=== PATIENT | female | born 1955 | race Caucasian/White ===

== ENCOUNTER 2018-02-13 10:31 | Emergency (ER) | payer OTHER ==
[2018-02-13] MEDS ORDERED: Aspirin 81 MG Tab.Chew PO ONE (10:58)
--- NOTE | 2018-02-13 11:09 | EDM.PDOC ---
ED HPI GENERAL MEDICAL PROBLEM - General Chief Complaint: Chest Pain Stated Complaint: [id number] CHEST DISCOMFORT Time Seen by Provider: 02/13/18 10:50 Source of Information: Reports: Patient History Limitations: Reports: No Limitations - History of Present Illness INITIAL COMMENTS - FREE TEXT/NARRATIVE: This 63 yo female patient reports to the ED due to chest discomfort. The patient reports that she started to have symptoms at about 0200 this morning. The patient reports that she took nitro x3 every 1/2 hour with some symptom resolution after the 3rd dose. The patient reports that after she took the 3rd dose of nitro her pain almost went away. The patient reports that her chest pain was about an 8/10 at it's worse, after the nitro her pain went down to a 2/ 10. The patient reports that her pain is currently a 4/10 and more of a chest discomfort. The patient reports that her pain went to her left shoulder last night, but not today. This morning, the patient reports an increase in her chest heaviness after going up and down stairs. 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 Upper Chest Pain Score (Numeric/FACES): 4 - Related Data Allergies Allergy/AdvReac Type Severity Reaction Status Date / Time doxycycline Allergy Cannot Verified 02/13/18 10:45 Remember propoxyphene Allergy Cannot Verified 02/13/18 10:45 Remember rosuvastatin calcium Allergy Swelling Verified 02/13/18 10:45 [From Crestor] Home Meds: Home Meds Baclofen 10 mg PO ASDIRECTED 02/21/14 [History] Citalopram [Citalopram Hbr] 20 mg PO DAILY 02/21/14 [History] Fluticasone Furoate [Veramyst] 1 spray AILIN DAILY 02/21/14 [History] Pantoprazole Sodium 40 mg PO DAILY 02/21/14 [History] Aspirin [Lo-Dose Aspirin EC] 81 mg PO DAILY 10/02/16 [History] Clopidogrel [Plavix] 75 mg PO DAILY 10/02/16 [History] Fenofibrate Nanocrystallized [Fenofibrate] 145 mg PO DAILY 10/02/16 [History] Ferrous Sulfate [Iron] 325 mg PO DAILY 10/02/16 [History] Glatiramer Acetate [Copaxone] 1 ml SQ ASDIRECTED 10/02/16 [History] Metoprolol Tartrate 100 mg PO BID 10/02/16 [History] Nitroglycerin [IJP: Nitroglycerin] 1 tab SL ASDIRECTED 10/02/16 [History] atorvaSTATin [Lipitor] 40 mg PO BEDTIME 10/02/16 [History] Acetaminophen [Acetaminophen Extra Strength] 1,000 mg PO BID 10/03/16 [History] Cholecalciferol (Vitamin D3) [Vitamin D3] 2,000 units PO BID 10/03/16 [History] Pramipexole [Mirapex] 2 tab PO TID 10/03/16 [History] Vitamin B Complex 1 each PO DAILY 10/03/16 [History] Valsartan/Hydrochlorothiazide [Valsartan-Hctz 80-12.5 mg Tab] 1 tab PO DAILY [History] amLODIPine [Norvasc] 10 mg PO DAILY 10/22/16 [History] Past Medical History HEENT History: 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, Impaired Vision Other HEENT History: wears glasses Cardiovascular History: Reports: High Cholesterol, Hypertension, [place] Respiratory History: Reports: Bronchitis, Recurrent Gastrointestinal History: 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 Genitourinary History: 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 Musculoskeletal History: 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 Neurological History: Reports: MS Psychiatric History: 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 Endocrine/Metabolic History: 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 Hematologic History: 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 Immunologic History: 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 Oncologic (Cancer) History: 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 Dermatologic History: 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 - Infectious Disease History Infectious Disease History: Reports: Chicken Pox, Measles, Mumps - Past Surgical History Head Surgeries/Procedures: 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 Other Musculoskeletal Surgeries/Procedures:: Hip pain Social & Family History - Family History Family Medical History: Noncontributory - Tobacco Use Smoking Status *Q: Former Smoker Years of Tobacco use: 40 Packs/Tins Daily: 1 Used Tobacco, but Quit: Yes Month/Year Tobacco Last Used: Sept Second Hand Smoke Exposure: No - Caffeine Use Caffeine Use: Reports: Coffee, Energy Drinks, Soda - Recreational Drug Use Recreational Drug Use: No ED ROS GENERAL - Review of Systems Review Of Systems: ROS reveals no pertinent complaints other than HPI. ED EXAM, GENERAL - Physical Exam Exam: See Below Exam Limited By: No Limitations General Appearance: Alert, WD/WN, Moderate Distress Eye Exam: Bilateral Eye: EOMI, Normal Inspection, PERRL Ears: Normal External Exam, Normal Canal, Hearing Grossly Normal, Normal TMs Nose: Normal Inspection, Normal Mucosa, No Blood Throat/Mouth: Normal Inspection, Normal Lips, Normal Teeth, Normal Gums, Normal Oropharynx, Normal Voice, No Airway Compromise Head: Atraumatic, Normocephalic Neck: Normal Inspection, Supple, Non-Tender, Full Range of Motion Respiratory/Chest: No Respiratory Distress Cardiovascular: Normal Peripheral Pulses, Regular Rate, Rhythm, No Edema, No Gallop, No JVD, No Rub, Systolic Murmur GI/Abdominal: Normal Bowel Sounds, Soft, Non-Tender, No Organomegaly, No Distention, No Abnormal Bruit, No Mass (Female) Exam: Deferred Rectal (Female) Exam: Deferred Back Exam: Normal Inspection, Full Range of Motion, NT Extremities: Normal Inspection, Normal Range of Motion, Non-Tender, Normal Capillary Refill, No Pedal Edema Neurological: Alert, Oriented, CN II-XII Intact, Normal Cognition, Normal Gait, Normal Reflexes, No Motor/Sensory Deficits Psychiatric: Normal Affect, Normal Mood Skin Exam: Warm, Dry, Intact, Normal Color, No Rash Lymphatic: No Adenopathy Course - Vital Signs Last Recorded V/S: Last Vital Signs Temp 35.9 C 02/13/18 10:39 Pulse 61 02/13/18 11:45 Resp 16 02/13/18 11:45 BP 124/57 L 02/13/18 11:45 Pulse Ox 95 02/13/18 11:45 - Orders/Labs/Meds Orders: Active Orders 24 hr Category Date Time Status EKG Documentation Completion [RC] URGENT Care 02/13/18 10:37 Active Labs: Laboratory Tests 02/13/18 02/13/18 02/13/18 Range/Units 10:48 10:48 10:48 WBC 5.0 (5.0-10.0) 10^3/uL RBC 3.78 L (4.2-5.4) 10^6/uL Hgb 11.1 L (12.0-16.0) g/dL Hct 34.1 L (37.0-47.0) % MCV 90.2 (80-100) fL MCH 29.4 (27.0-34.0) pg MCHC 32.6 L (33.0-35.0) g/dL Plt Count 270 (150-450) 10^3/uL Neut % (Auto) 59.3 (42.2-75.2) % Lymph % (Auto) 28.1 (20.5-50.1) % [place] % (Auto) 9.0 H (2-8) % Eos % (Auto) 2.8 (1.0-3.0) % Baso % (Auto) 0.8 (0.0-1.0) % PT 9.4 (9.0-12.0) SEC INR 0.9 (0.9-1.2) Sodium 138 (135-145) mmol/L Potassium 3.6 (3.6-5.0) mmol/L Chloride 104 (101-111) mmol/L Carbon Dioxide 26.0 (21.0-31.0) mmol/L Anion Gap 11.6 BUN 20 H (7-18) mg/dL Creatinine 0.6 (0.6-1.3) mg/dL Est Cr Clr Drug Dosing 88.68 mL/min Estimated GFR (MDRD) > 60 BUN/Creatinine Ratio 33.33 Glucose 165 H (74-105) mg/dL Calcium 9.4 (8.4-10.2) mg/dl Total Bilirubin 0.6 (0.2-1.0) mg/dL AST 29 (10-42) IU/L ALT 26 (10-60) IU/L Alkaline Phosphatase 29 L (42-121) IU/L Troponin I < 0.02 (0.00-0.02) ng/ml Total Protein 6.9 (6.7-8.2) g/dl Albumin 4.3 (3.2-5.5) g/dl Globulin 2.6 Albumin/Globulin Ratio 1.65 Meds: Medications Discontinued Medications Generic Name Dose Route Start Last Admin Trade Name Freq PRN Reason Stop Dose Admin Aspirin 324 mg 02/13/18 10:58 02/13/18 11:03 Aspirin PO 02/13/18 10:59 324 mg ONETIME ONE Administration Nitroglycerin 0.4 mg 02/13/18 11:37 02/13/18 11:41 Nitrostat SL 02/13/18 11:38 0.4 mg ONETIME ONE Administration - Re-Assessments/Exams Free Text/Narrative Re-Assessment/Exam: 02/13/18 11:36 The patient was advised of the examination, EKG and lab results. The patient reports her current chest discomfort is rated at a 2/10, but continues to be present. 02/13/18 12:01 A call was placed to [facility] in [place] regarding transferring the patient. During the initial call, there were no tele beds available. [facility] called back to report that they may have a bed available and will call back with a yes or no in less than 15 minutes. Departure - Departure Time of Disposition: 12:40 Disposition: DC/Tfer to [facility] Reason for Transfer *Q: Other Condition: Fair Clinical Impression: Unstable angina Forms: Interfacility Transfer EMTALA Care Plan Goals: Discussed the history, examination, EKG, x-ray and treatments with Dr. Montague (Hospitalist with [facility] in [place]). Dr. Montague accepted the patient for continued evaluation and further management. The patient will be transported by [facility]. - My Orders Last 24 Hours: My Active Orders 02/13/18 10:37 EKG Documentation Completion [RC] URGENT - Assessment/Plan Last 24 Hours: My Active Orders 02/13/18 10:37 EKG Documentation Completion [RC] URGENT
[2018-02-13 11:15] LABS: CHLORIDE,CL 104 mmol/L (101-111); SODIUM,NA 138 mmol/L (135-145)
[2018-02-13] MEDS ORDERED: Nitroglycerin 0.4 MG Tab.SL SL ONE (11:37)
--- NOTE | 2018-02-13 11:44 | CR ---
Clinical history: 63-year-old female with chest "heaviness" (emergency Department). Interpretation: Slight left ventricular configuration but no cephalization of vascular flow, signs of pulmonary venous congestion, alveolar edema or dependent pleural fluid accumulation. Calcification a rch of the aorta. No lung mass or hilar lymphadenopathy. No focal lobar pneumonia, atelectasis or collapse. No pneumothorax. CONCLUSION: Slight left ventriculomegaly. No signs of heart failure, lung mass or pneumonia.
[2018-02-13 11:48] VITALS: BP 124/57
--- NOTE | 2018-02-14 08:49 | EKG ---
02/13/2018 - EVELIN ANDREW - TIME: 10:40 a.m. FINDINGS: The EKG shows normal sinus rhythm, heart rate is 62 beats per minute. CONCLUSION: Normal EKG. [facility] /[id number]
--- NOTE | 2018-02-15 11:41 | EKG ---
02/13/2018 - EVELIN ANDREW - TIME: 10:40 a.m. EKG shows heart rate of 62 beats per minute, sinus rhythm with T-wave inversions in the lateral leads. [facility] /[id number]
== END 2018-02-13 13:11 ==
LOC: DL.ED 10:31
DX: I20.0 Unstable angina (principal); I10 Essential (primary) hypertension; I25.2 Old myocardial infarction; Z88.8 Allergy status to other drugs, medicaments and biological substances; Z79.899 Other long term (current) drug therapy; Z79.82 Long term (current) use of aspirin; Z87.891 Personal history of nicotine dependence
CPT/HCPCS: 36415; 71045; 80053; 84484; 85025; 85610; 93005; 99285; A9270

== ENCOUNTER 2019-02-19 11:07 | Emergency (ER) | payer MEDICARE, OTHER ==
[2019-02-19 12:30] LABS: ANION GAP 15.2; CHLORIDE,CL 103 mmol/L (101-111); SODIUM,NA 139 mmol/L (135-145)
[2019-02-19 13:04] VITALS: BP 142/53
--- NOTE | 2019-02-19 13:36 | CR ---
Clinical history: 64-year-old female chest pain. Interpretation: Upright AP portable chest film confirms chronic mild left ventriculomegaly but without new cephalization of flow signs of alveolar edema or dependent pleural fluid accumulation when compared to 13 Feb 2018. quality assurance monitor final leads. No new lung mass, hilar lymphadenopathy or focal lobar pneumonia. No atelectasis/collapse. No pneumothorax.
--- NOTE | 2019-02-19 14:30 | EDM.PDOC ---
ED HPI GENERAL MEDICAL PROBLEM - General Chief Complaint: Chest Pain Stated Complaint: CHEST PAIN Time Seen by Provider: 02/19/19 11:58 Source of Information: Reports: Patient, RN, RN Notes Reviewed History Limitations: Reports: No Limitations - History of Present Illness INITIAL COMMENTS - FREE TEXT/NARRATIVE: Patient presents to ER with complaint of right upper quadrant--radiates to the back--began last night. Present upon waking today. Achey pain 4/10. He has had no fever, chills, chest pain, shortness of breath, nausea, vomiting and diarrhea. She took a nitro today which helped. Onset: Today Duration: Constant Location: Reports: Abdomen Quality: Reports: Ache Severity: Mild Improves with: 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 Worsens with: 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 Associated Symptoms: Reports: No Other Symptoms - Related Data Allergies Allergy/AdvReac Type Severity Reaction Status Date / Time doxycycline Allergy Cannot Verified 02/13/18 10:45 Remember propoxyphene Allergy Cannot Verified 02/13/18 10:45 Remember rosuvastatin calcium Allergy Swelling Verified 02/13/18 10:45 [From Crestor] Home Meds: Home Meds Baclofen 10 mg PO BID 02/21/14 [History] Citalopram [Citalopram Hbr] 20 mg PO DAILY 02/21/14 [History] Fluticasone Furoate [Veramyst] 1 spray AILIN DAILY PRN 02/21/14 [History] Pantoprazole Sodium 40 mg PO DAILY 02/21/14 [History] Aspirin [Lo-Dose Aspirin EC] 81 mg PO DAILY 10/02/16 [History] Clopidogrel [Plavix] 75 mg PO DAILY 10/02/16 [History] Fenofibrate Nanocrystallized [Fenofibrate] 145 mg PO DAILY 10/02/16 [History] Ferrous Sulfate [Iron] 325 mg PO DAILY 10/02/16 [History] Glatiramer Acetate [Copaxone] 1 ml SQ ASDIRECTED 10/02/16 [History] Metoprolol Tartrate 100 mg PO BID 10/02/16 [History] Nitroglycerin [IJP: Nitroglycerin] 1 tab SL ASDIRECTED 10/02/16 [History] atorvaSTATin [Lipitor] 40 mg PO BEDTIME 10/02/16 [History] Acetaminophen [Acetaminophen Extra Strength] 1,000 mg PO BID 10/03/16 [History] Cholecalciferol (Vitamin D3) [Vitamin D3] 2,000 units PO DAILY 10/03/16 [History ] Pramipexole [Mirapex] 0.125 tab PO TID 10/03/16 [History] Vitamin B Complex 1 each PO DAILY 10/03/16 [History] amLODIPine [Norvasc] 10 mg PO DAILY 10/22/16 [History] Baclofen 20 mg PO BEDTIME 02/24/18 [History] Calcium Carbonate/Vitamin D3 [Liquid Calcium 600-Vit D3 Sfgl] 1 cap PO DAILY 01/08 [History] Isosorbide Mononitrate [Imdur] 60 mg PO DAILY 02/24/18 [History] Lactobacillus Rhamnosus GG [Culturelle] 1 cap PO DAILY 02/24/18 [History] Multivitamin [Multivitamins] 1 cap PO DAILY 02/24/18 [History] metFORMIN HCl [Metformin HCl] 1,000 mg PO BIDMEALS 02/24/18 [History] Past Medical History HEENT History: 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, Impaired Vision Other HEENT History: wears glasses Cardiovascular History: Reports: High Cholesterol, Hypertension, [place] Respiratory History: Reports: Bronchitis, Recurrent Gastrointestinal History: 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 Genitourinary History: 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: 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 Musculoskeletal History: 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 Other Musculoskeletal History: multiple sclerosis Neurological History: Reports: MS Psychiatric History: 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 Endocrine/Metabolic History: Reports: Diabetes, Type II Hematologic History: 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 Immunologic History: 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 Oncologic (Cancer) History: 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 Dermatologic History: 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 - Infectious Disease History Infectious Disease History: Reports: Chicken Pox, Measles, Mumps - Past Surgical History Head Surgeries/Procedures: 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 Cardiovascular Surgical History: Reports: Coronary Artery Stent Other Cardiovascular Surgeries/Procedures: 02/14/2018 GI Surgical History: Reports: Appendectomy, Cholecystectomy Musculoskeletal Surgical History: Reports: Carpal Tunnel Other Musculoskeletal Surgeries/Procedures:: Hip pain Social & Family History - Family History Family Medical History: Noncontributory - Tobacco Use Smoking Status *Q: Never Smoker - Caffeine Use Caffeine Use: Reports: Coffee - Recreational Drug Use Recreational Drug Use: No ED ROS GENERAL - Review of Systems Review Of Systems: ROS reveals no pertinent complaints other than HPI. ED EXAM, GI/ABD - Physical Exam Exam: See Below Exam Limited By: No Limitations General Appearance: Alert, WD/WN, No Apparent Distress Eyes: Bilateral: Normal Appearance Ears: Normal External Exam, Normal Canal, Hearing Grossly Normal, Normal TMs Nose: Normal Inspection, Normal Mucosa, No Blood Throat/Mouth: Normal Inspection, Normal Lips, Normal Teeth, Normal Gums, Normal Oropharynx, Normal Voice, No Airway Compromise Head: Atraumatic, Normocephalic Neck: Normal Inspection, Supple, Non-Tender, Full Range of Motion Respiratory/Chest: Other (expiratory groan) Cardiovascular: Normal Peripheral Pulses, Regular Rate, Rhythm, No Edema, No Gallop, No JVD, No Murmur, No Rub GI/Abdominal Exam: Non-Tender (Female) Exam: Deferred Rectal (Female) Exam: Deferred Back Exam: Normal Inspection, Full Range of Motion, NT Extremities: Normal Inspection, Normal Range of Motion, Non-Tender, Normal Capillary Refill, No Pedal Edema Neurological: Alert, Oriented, CN II-XII Intact, Normal Cognition, Normal Gait, Normal Reflexes, No Motor/Sensory Deficits Psychiatric: Normal Affect, Normal Mood Skin Exam: Warm, Dry, Intact, Normal Color, No Rash Lymphatic: No Adenopathy Course - Vital Signs Last Recorded V/S: Last Vital Signs Temp 98.2 F 02/19/19 12:09 Pulse 70 02/19/19 12:09 Resp 16 02/19/19 12:09 BP 142/53 H 02/19/19 12:09 Pulse Ox 99 02/19/19 12:09 - Orders/Labs/Meds Orders: Active Orders 24 hr Category Date Time Status EKG 12 Lead [EKG Documentation Completion] [RC] STAT Care 02/19/19 11:38 Active Labs: Laboratory Tests 02/19/19 02/19/19 02/19/19 Range/Units 12:01 12:01 12:01 WBC 5.5 (5.0-10.0) 10^3/uL RBC 4.27 (4.2-5.4) 10^6/uL Hgb 12.0 (12.0-16.0) g/dL Hct 37.9 (37.0-47.0) % MCV 88.8 (80-100) fL MCH 28.1 (27.0-34.0) pg MCHC 31.7 L (33.0-35.0) g/dL Plt Count 284 (150-450) 10^3/uL Neut % (Auto) 53.9 (42.2-75.2) % Lymph % (Auto) 32.5 (20.5-50.1) % Grand % (Auto) 9.6 H (2-8) % Eos % (Auto) 3.1 H (1.0-3.0) % Baso % (Auto) 0.9 (0.0-1.0) % Sodium 139 (135-145) mmol/L Potassium 3.2 L (3.6-5.0) mmol/L Chloride 103 (101-111) mmol/L Carbon Dioxide 24.0 (21.0-31.0) mmol/L Anion Gap 15.2 BUN 19 H (7-18) mg/dL Creatinine 0.7 (0.6-1.3) mg/dL Est Cr Clr Drug Dosing TNP Estimated GFR (MDRD) > 60 BUN/Creatinine Ratio 27.14 Glucose 136 H (74-105) mg/dL Calcium 9.4 (8.4-10.2) mg/dl Total Bilirubin 0.6 (0.2-1.0) mg/dL AST 22 (10-42) IU/L ALT 16 (10-60) IU/L Alkaline Phosphatase 27 L (42-121) IU/L Troponin I < 0.02 (0.00-0.02) ng/ml Total Protein 6.6 L (6.7-8.2) g/dl Albumin 4.1 (3.2-5.5) g/dl Globulin 2.5 Albumin/Globulin Ratio 1.64 Amylase 45 (28-100) U/L Lipase 45 (22-51) U/L Urine Color (YELLOW) Urine Appearance (CLEAR) Urine pH (5.0-9.0) Ur Specific [place] (1.005-1.030) Urine Protein (NEGATIVE) Urine Glucose (UA) (NEGATIVE) Urine Ketones (NEGATIVE) Urine Occult Blood (NEGATIVE) Urine Nitrite (NEGATIVE) Urine Bilirubin (NEGATIVE) Urine Urobilinogen (0.2-1.0) mg/dL Ur Leukocyte Esterase (NEGATIVE) Urine RBC /HPF Urine WBC (0-5/HPF) /HPF Ur Epithelial Cells (NOT SEEN) /HPF Amorphous Sediment (NOT SEEN) /HPF Urine Bacteria (0-FEW/HPF) /HPF 02/19/19 Range/Units 13:30 WBC (5.0-10.0) 10^3/uL RBC (4.2-5.4) 10^6/uL Hgb (12.0-16.0) g/dL Hct (37.0-47.0) % MCV (80-100) fL MCH (27.0-34.0) pg MCHC (33.0-35.0) g/dL Plt Count (150-450) 10^3/uL Neut % (Auto) (42.2-75.2) % Lymph % (Auto) (20.5-50.1) % Grand % (Auto) (2-8) % Eos % (Auto) (1.0-3.0) % Baso % (Auto) (0.0-1.0) % Sodium (135-145) mmol/L Potassium (3.6-5.0) mmol/L Chloride (101-111) mmol/L Carbon Dioxide (21.0-31.0) mmol/L Anion Gap BUN (7-18) mg/dL Creatinine (0.6-1.3) mg/dL Est Cr Clr Drug Dosing Estimated GFR (MDRD) BUN/Creatinine Ratio Glucose (74-105) mg/dL Calcium (8.4-10.2) mg/dl Total Bilirubin (0.2-1.0) mg/dL AST (10-42) IU/L ALT (10-60) IU/L Alkaline Phosphatase (42-121) IU/L Troponin I (0.00-0.02) ng/ml Total Protein (6.7-8.2) g/dl Albumin (3.2-5.5) g/dl Globulin Albumin/Globulin Ratio Amylase (28-100) U/L Lipase (22-51) U/L Urine Color Yellow (YELLOW) Urine Appearance Slightly cloudy (CLEAR) Urine pH 6.5 (5.0-9.0) Ur Specific [place] 1.025 (1.005-1.030) Urine Protein 100 H (NEGATIVE) Urine Glucose (UA) Negative (NEGATIVE) Urine Ketones Negative (NEGATIVE) Urine Occult Blood Negative (NEGATIVE) Urine Nitrite Negative (NEGATIVE) Urine Bilirubin Negative (NEGATIVE) Urine Urobilinogen 0.2 (0.2-1.0) mg/dL Ur Leukocyte Esterase Negative (NEGATIVE) Urine RBC 0-5 /HPF Urine WBC 0-5 (0-5/HPF) /HPF Ur Epithelial Cells Few (NOT SEEN) /HPF Amorphous Sediment Many H (NOT SEEN) /HPF Urine Bacteria Few (0-FEW/HPF) /HPF - Radiology Interpretation Free Text/Narrative:: Chest xray: Chronic mild left ventriculomegaly but without new cephalization of flow signs of alveolar edema, or dependent pleural fluid accumulation when compared to 13 Feb 2018. No other acute findings See rad report Departure - Departure Time of Disposition: 14:25 Disposition: Home, Self-Care 01 Condition: Fair Clinical Impression: Abdominal pain Qualifiers: Abdominal location: right upper quadrant Qualified Code(s): R10.11 - Right upper quadrant pain - Discharge Information *PRESCRIPTION DRUG MONITORING PROGRAM REVIEWED*: No *COPY OF PRESCRIPTION DRUG MONITORING REPORT IN PATIENT [place]: No Instructions: Abdominal Pain, Adult, [id number], Flank Pain, Adult, Easy-to- Read Referrals: Ivon Patel PA [Primary Care Provider] - Forms: ED Department Discharge Additional Instructions: Follow up with your primary care facility if no improvement May use Tylenol as directed for pain - My Orders Last 24 Hours: My Active Orders 02/19/19 11:38 EKG 12 Lead [EKG Documentation Completion] [RC] STAT - Assessment/Plan Last 24 Hours: My Active Orders 02/19/19 11:38 EKG 12 Lead [EKG Documentation Completion] [RC] STAT
== END 2019-02-19 14:40 | disposition home or self-care (01) ==
LOC: DL.ED 11:07
DX: R10.11 Right upper quadrant pain (principal); E78.00 Pure hypercholesterolemia, unspecified; I10 Essential (primary) hypertension; E11.9 Type 2 diabetes mellitus without complications; Z88.1 Allergy status to other antibiotic agents; Z88.8 Allergy status to other drugs, medicaments and biological substances; Z79.899 Other long term (current) drug therapy
CPT/HCPCS: 36415; 71045; 80053; 81001; 82150; 83690; 84484; 85025; 93005; 99285-25

== ENCOUNTER 2021-10-15 10:12 | Emergency (ER) | payer MEDICARE, OTHER ==
[2021-10-15] MEDS ORDERED: Aspirin 81 MG Tab.Chew PO ONE (10:29)
[2021-10-15 10:46] VITALS: BP 167/54; PULSE 70
[2021-10-15 11:09] LABS: ANION GAP 12.5 mEq/L (7-13); CHLORIDE,CL 104 mmol/L (98-107); SODIUM,NA 141 mmol/L (136-145)
[2021-10-15 11:16] LABS: CORONAVIRUS COVID-19 NAA NEGATIVE (NEGATIVE)
== END 2021-10-15 13:43 | disposition home or self-care (01) ==
LOC: DL.ED 10:12
DX: R07.9 Chest pain, unspecified (principal); R79.0 Abnormal level of blood mineral; E78.00 Pure hypercholesterolemia, unspecified; I10 Essential (primary) hypertension; I25.2 Old myocardial infarction; E11.9 Type 2 diabetes mellitus without complications; Z88.1 Allergy status to other antibiotic agents; Z88.8 Allergy status to other drugs, medicaments and biological substances; Z79.82 Long term (current) use of aspirin; Z79.02 Long term (current) use of antithrombotics/antiplatelets; Z79.84 Long term (current) use of oral hypoglycemic drugs; Z20.822 Contact with and (suspected) exposure to COVID-19
CPT/HCPCS: 0240U; 36415; 71045; 80053; 82150; 83605; 83690; 83880; 84484; 85025; 85610; 85730; 86140; 93005; 99285; A9270

== ENCOUNTER 2022-06-28 09:02 | Emergency (ER) | payer MEDICARE, OTHER ==
[2022-06-28] MEDS ORDERED: Nitroglycerin 0.4 MG Tab.SL SL ONE (09:30)
[2022-06-28] MEDS ORDERED: Aspirin 81 MG Tab.Chew PO ONE (09:30)
[2022-07-23 15:13] LABS: SODIUM,NA 137 mmol/L (136-145)
[2022-07-23 15:14] LABS: ANION GAP 13.2 mEq/L (7-13); CHLORIDE,CL 101 mmol/L (98-107); ESTIMATED GFR 73 mL/min (>=60)
[2022-07-23 15:15] LABS: PTT,PARTIAL THROMBOPLSTIN TIME 21.4 SEC (22.0-34.0)
== END 2022-06-28 11:25 | disposition home or self-care (01) ==
LOC: DL.ED 09:02
DX: I20.9 Angina pectoris, unspecified (principal); I25.2 Old myocardial infarction; J44.9 Chronic obstructive pulmonary disease, unspecified; Z95.5 Presence of coronary angioplasty implant and graft
CPT/HCPCS: 36415; 71045; 80053; 82150; 83690; 83880; 84484; 85025; 85379; 85610; 85730; 99285; A9270; 93005; 93010; 99284

== ENCOUNTER 2022-09-06 11:47 | Emergency (ER) | payer MEDICARE, OTHER ==
[2022-09-06 12:17] VITALS: BP 127/58; PULSE 84
[2022-09-06 13:41] LABS: CORONAVIRUS COVID-19 NAA NEGATIVE (NEGATIVE)
== END 2022-09-06 14:00 | disposition home or self-care (01) ==
LOC: DL.ED 11:47
DX: R07.9 Chest pain, unspecified (principal); K59.00 Constipation, unspecified; I10 Essential (primary) hypertension; E11.9 Type 2 diabetes mellitus without complications; F17.210 Nicotine dependence, cigarettes, uncomplicated; Z88.1 Allergy status to other antibiotic agents; Z88.8 Allergy status to other drugs, medicaments and biological substances; Z79.899 Other long term (current) drug therapy; Z79.82 Long term (current) use of aspirin; Z90.49 Acquired absence of other specified parts of digestive tract; Z20.822 Contact with and (suspected) exposure to COVID-19
CPT/HCPCS: 0240U; 36415; 71045; 74019; 80053; 83605; 84484; 85025; 85379; 85610; 93005; 99285

== ENCOUNTER 2022-10-08 13:33 | Emergency (ER) | payer MEDICARE, OTHER ==
[2022-10-08] MEDS ORDERED: Sodium Chloride 0.9% 10 ML Syringe FLUSH PRN (14:01)
[2022-10-08 14:50] VITALS: BP 122/69; PULSE 100
[2022-10-08 14:57] LABS: ANION GAP 12.8 mEq/L (7-13)
[2022-10-08 15:04] LABS: CHLORIDE,CL 92 mmol/L (98-107); SODIUM,NA 126 mmol/L (136-145)
[2022-10-08 15:05] LABS: ESTIMATED GFR 76 mL/min (>=60)
[2022-10-08] MEDS ORDERED: Sodium Chloride 0.9% 1,000 ML IV ONE (15:16)
[2022-10-08 15:40] LABS: CORONAVIRUS COVID-19 NAA NEGATIVE (NEGATIVE); RESPIRATORY SYNCYTIAL VIR NAA NEGATIVE (NEGATIVE)
[2022-10-08] MEDS ORDERED: Ondansetron 4 MG/2 ML SDV IVPUSH ONE (15:44)
== END 2022-10-08 16:38 | disposition home or self-care (01) ==
LOC: DL.ED 13:33
DX: B34.9 Viral infection, unspecified (principal); R11.2 Nausea with vomiting, unspecified; E87.1 Hypo-osmolality and hyponatremia; E78.00 Pure hypercholesterolemia, unspecified; I10 Essential (primary) hypertension; I25.2 Old myocardial infarction; J44.9 Chronic obstructive pulmonary disease, unspecified; Z88.0 Allergy status to penicillin; Z88.1 Allergy status to other antibiotic agents; Z88.8 Allergy status to other drugs, medicaments and biological substances; Z79.82 Long term (current) use of aspirin; Z79.02 Long term (current) use of antithrombotics/antiplatelets; Z20.822 Contact with and (suspected) exposure to COVID-19
CPT/HCPCS: 0241U; 36415; 80053; 82150; 83605; 83690; 83735; 85025; 86140; 93005; 96361; 96374; 99284; J2405; J3490; J7030

== ENCOUNTER 2022-11-18 12:48 | Emergency (ER) | payer MEDICARE, OTHER ==
[2022-11-18] MEDS ORDERED: Benzonatate 100 MG Cap PO ONE (12:49)
[2022-11-18] MEDS ORDERED: Albuterol/Ipratropium 3.0-0.5 MG/3 ML Neb Soln NEB ONE (12:59)
[2022-11-18 13:00] VITALS: BP 108/64
[2022-11-18 13:34] VITALS: PULSE 100
[2022-11-18 13:40] LABS: ANION GAP 15.1 mEq/L (7-13)
[2022-11-18] MEDS ORDERED: Magnesium Sulfate/Water 2 GM in Premix Bag 1 BAG IV ONE (13:52)
[2022-11-18] MEDS ORDERED: Sodium Chloride 0.9% 250 ML IV ONE (13:57)
[2022-11-18] MEDS ORDERED: Iopamidol 755 Mg/ML 100 ML Bottle IVPUSH ONE (15:00)
[2022-11-18] MEDS ORDERED: cefTRIAXone 1 GM Vial IVPUSH ONE (15:23)
[2022-11-18] MEDS ORDERED: Benzonatate 100 MG Cap ONE (15:38)
== END 2022-11-18 15:47 | disposition home or self-care (01) ==
LOC: DL.ED 12:48
DX: J18.9 Pneumonia, unspecified organism (principal); E83.42 Hypomagnesemia; E87.1 Hypo-osmolality and hyponatremia; R79.1 Abnormal coagulation profile; E78.00 Pure hypercholesterolemia, unspecified; I10 Essential (primary) hypertension; I25.2 Old myocardial infarction; J44.9 Chronic obstructive pulmonary disease, unspecified; E11.9 Type 2 diabetes mellitus without complications; Z88.0 Allergy status to penicillin; Z88.1 Allergy status to other antibiotic agents; Z88.8 Allergy status to other drugs, medicaments and biological substances; Z79.82 Long term (current) use of aspirin; Z79.02 Long term (current) use of antithrombotics/antiplatelets; Z79.899 Other long term (current) drug therapy; Z79.84 Long term (current) use of oral hypoglycemic drugs
CPT/HCPCS: 36415; 71045; 71275; 80053; 83735; 85025; 85379; 94640; 96365; 96375; 99285; A9270; J0696; J3475; J7030; Q9967; J7620-GY

== ENCOUNTER 2023-09-20 16:30 | Emergency (ER) | payer MEDICARE, OTHER ==
[2023-09-20 15:27] LABS: EOSINOPHILS PERCENT AUTO 2.3 % (1.0-3.0); HEMATOCRIT 31.6 % (37.0-47.0); HEMOGLOBIN 9.7 g/dL (12.0-16.0); LYMPHOCYTES PERCENT AUTO 22.4 % (20.5-50.1); MEAN CORPUSCULAR HEMOGLOBIN 29.7 pg (27.0-34.0); MEAN CORPUSCULAR HGB CONC 30.7 g/dL (33.0-35.0); MEAN CORPUSCULAR VOLUME 96.6 fL (80-100); MONOCYTES PERCENT AUTO 8.2 % (2-8); NEUTROPHILS PERCENT AUTO 66.1 % (42.2-75.2); PLATELET COUNT,PLT 182 10^3/uL (150-450); RED BLOOD CELL COUNT 3.27 10^6/uL (4.2-5.4); WHITE BLOOD CELL COUNT,WBC 5.1 10^3/uL (5.0-10.0)
[2023-09-20] MEDS: Norepinephrine Bit/D5W Premix 250 ML ONE ×2 (15:37→18:04)
[2023-09-20 15:46] LABS: ALANINE AMINOTRANSFERASE,ALT 18 U/L (14-59); ALBUMIN 2.2 g/dL (3.4-5.0); ALKALINE PHOSPHATASE 33 U/L (46-116); ANION GAP 14.8 mEq/L (7-13); ASPARTATE AMNIOTRANSFERASE,AST 12 U/L (15-37); BILIRUBIN TOTAL 0.2 mg/dL (0.2-1.0); BLOOD UREA NITROGEN,BUN 23 mg/dL (7-18); BUN/CREATININE RATIO 31.9 (No establ ref range); CALCIUM 8.1 mg/dL (8.5-10.1); CARBON DIOXIDE,CO2 26 mmol/L (21-32); CHLORIDE,CL 106 mmol/L (98-107); CREATININE 0.72 mg/dL (0.55-1.02); GLUCOSE RANDOM 126 mg/dL (70-99); MAGNESIUM 1.3 mg/dL (1.8-2.4); POTASSIUM,K 3.8 mmol/L (3.5-5.1); PROTEIN TOTAL,TP 4.5 g/dL (6.4-8.2); SODIUM,NA 143 mmol/L (136-145)
[2023-09-20 15:51] LABS: A/G RATIO 0.96; ESTIMATED GFR 90 mL/min (>=60)
[2023-09-20 15:54] LABS: PROTHROMBIN TIME 10.1 SEC (9.0-12.0)
[~2023-09-20 16:30] MED LIST: Iopamidol 755 Mg/ML 100 ML Bottle IVPUSH ONE; Norepinephrine Bit/D5W Premix 250 ML IV SCH; Sodium Chloride 0.9% 10 ML Syringe FLUSH PRN
[2023-09-20] MEDS ORDERED: Atropine 0.4 MG/ML SDV IVPUSH ONE (18:07)
== END 2023-09-20 17:33 ==
LOC: DL.ED 16:30
DX: I21.3 ST elevation (STEMI) myocardial infarction of unspecified site (principal); I10 Essential (primary) hypertension; J44.9 Chronic obstructive pulmonary disease, unspecified; E78.00 Pure hypercholesterolemia, unspecified; E11.9 Type 2 diabetes mellitus without complications; Z90.49 Acquired absence of other specified parts of digestive tract; Z79.82 Long term (current) use of aspirin; Z79.899 Other long term (current) drug therapy; Z88.0 Allergy status to penicillin; Z88.8 Allergy status to other drugs, medicaments and biological substances
CPT/HCPCS: 36415; 71250; 71275; 80053; 83735; 84484; 85025; 85610; 86850; 86900; 86901; 93010; 99285; J3490; Q9967

== ENCOUNTER 2023-11-01 15:43 | Emergency (ER) | payer MEDICARE, OTHER ==
[2023-11-01 17:28] VITALS: BP 179/76; PULSE 91
== END 2023-11-01 18:51 | disposition home or self-care (01) ==
LOC: DL.ED 15:43
DX: I77.1 Stricture of artery (principal); H53.8 Other visual disturbances; I10 Essential (primary) hypertension; I25.10 Atherosclerotic heart disease of native coronary artery without angina pectoris; E78.00 Pure hypercholesterolemia, unspecified; I25.2 Old myocardial infarction; J44.9 Chronic obstructive pulmonary disease, unspecified; E11.9 Type 2 diabetes mellitus without complications; Z95.1 Presence of aortocoronary bypass graft; Z95.5 Presence of coronary angioplasty implant and graft; Z79.82 Long term (current) use of aspirin; Z79.899 Other long term (current) drug therapy; Z88.8 Allergy status to other drugs, medicaments and biological substances; Z88.0 Allergy status to penicillin; Z88.1 Allergy status to other antibiotic agents
CPT/HCPCS: 93010; 99283; 99284

== ENCOUNTER 2023-11-08 13:01 | Emergency (ER) | payer MEDICARE, OTHER ==
[2023-11-08 13:49] LABS: BASOPHILS PERCENT AUTO 0.9 % (0.0-1.0); EOSINOPHILS PERCENT AUTO 2.3 % (1.0-3.0); HEMATOCRIT 36.9 % (37.0-47.0); HEMOGLOBIN 11.8 g/dL (12.0-16.0); LYMPHOCYTES PERCENT AUTO 24.7 % (20.5-50.1); MEAN CORPUSCULAR HEMOGLOBIN 29.9 pg (27.0-34.0); MEAN CORPUSCULAR VOLUME 93.7 fL (80-100); MONOCYTES PERCENT AUTO 9.8 % (2-8); NEUTROPHILS PERCENT AUTO 62.3 % (42.2-75.2); PLATELET COUNT,PLT 274 10^3/uL (150-450); RED BLOOD CELL COUNT 3.94 10^6/uL (4.2-5.4); WHITE BLOOD CELL COUNT,WBC 5.7 10^3/uL (5.0-10.0)
[2023-11-08 14:00] LABS: ALBUMIN 3.2 g/dL (3.4-5.0); BILIRUBIN TOTAL 0.3 mg/dL (0.2-1.0); BUN/CREATININE RATIO 27.4 (No establ ref range); CALCIUM 9.5 mg/dL (8.5-10.1); CREATININE 0.95 mg/dL (0.55-1.02); EST CRCL DRUG DOSING (CG) 54.35 mL/min; PROTEIN TOTAL,TP 6.6 g/dL (6.4-8.2)
[2023-11-08 14:01] LABS: A/G RATIO 0.94
[2023-11-08] MEDS: Sodium Chloride 0.9% 10 ML Syringe FLUSH PRN (14:01)
[2023-11-08] MEDS: Aspirin 81 MG Tab.Chew PO ONE (14:01)
[2023-11-08] MEDS: Iopamidol 755 Mg/ML 100 ML Bottle IVPUSH ONE (15:54)
[2023-11-08 17:14] VITALS: BP 156/51; PULSE 58
== END 2023-11-08 18:01 | disposition home or self-care (01) ==
LOC: DL.ED 13:01
DX: R07.9 Chest pain, unspecified (principal); I12.9 Hypertensive chronic kidney disease with stage 1 through stage 4 chronic kidney disease, or unspecified chronic kidney disease; N18.9 Chronic kidney disease, unspecified; E78.00 Pure hypercholesterolemia, unspecified; I25.2 Old myocardial infarction; I25.810 Atherosclerosis of coronary artery bypass graft(s) without angina pectoris; J44.9 Chronic obstructive pulmonary disease, unspecified; E11.9 Type 2 diabetes mellitus without complications; F17.210 Nicotine dependence, cigarettes, uncomplicated; Z95.5 Presence of coronary angioplasty implant and graft; Z79.82 Long term (current) use of aspirin; Z79.899 Other long term (current) drug therapy; Z88.8 Allergy status to other drugs, medicaments and biological substances; Z88.0 Allergy status to penicillin
CPT/HCPCS: 36415; 71045; 71275; 74174; 80053; 84484; 85025; 85379; 93005; 99285; A9270; Q9967; J3490

== ENCOUNTER 2024-11-15 17:15 | Emergency (ER) | payer MEDICARE, OTHER ==
[2024-11-15] MEDS ORDERED: Sodium Chloride 0.9% 1,000 ML IV SCH (17:45)
[2024-11-15] MEDS: Iopamidol 612 MG/ML 100 ML Bottle IVPUSH ONE (17:46)
[2024-11-15 17:58] LABS: EOSINOPHILS PERCENT AUTO 2.4 % (1.0-3.0); HEMATOCRIT 38.7 % (37.0-47.0); HEMOGLOBIN 12.2 g/dL (12.0-16.0); LYMPHOCYTES PERCENT AUTO 31.4 % (20.5-50.1); MEAN CORPUSCULAR HEMOGLOBIN 29.8 pg (27.0-34.0); MEAN CORPUSCULAR HGB CONC 31.5 g/dL (33.0-35.0); MEAN CORPUSCULAR VOLUME 94.6 fL (80-100); MONOCYTES PERCENT AUTO 10.1 % (2-8); NEUTROPHILS PERCENT AUTO 55.1 % (42.2-75.2); PLATELET COUNT,PLT 242 10^3/uL (150-450); RED BLOOD CELL COUNT 4.09 10^6/uL (4.2-5.4); WHITE BLOOD CELL COUNT,WBC 4.9 10^3/uL (5.0-10.0)
[2024-11-15] MEDS: Iopamidol 755 Mg/ML 100 ML Bottle IVPUSH ONE (18:08)
[2024-11-15 18:18] LABS: A/G RATIO 1.2; ALANINE AMINOTRANSFERASE,ALT 19 U/L (14-59); ALBUMIN 3.6 g/dL (3.4-5.0); ALKALINE PHOSPHATASE 45 U/L (46-116); ASPARTATE AMNIOTRANSFERASE,AST 14 U/L (15-37); BILIRUBIN DIRECT 0.2 mg/dL (0.0-0.2); BILIRUBIN INDIRECT 0.2; BILIRUBIN TOTAL 0.4 mg/dL (0.2-1.0); BLOOD UREA NITROGEN,BUN 25 mg/dL (7-18); CALCIUM 9.6 mg/dL (8.5-10.1); CARBON DIOXIDE,CO2 29 mmol/L (21-32); CHLORIDE,CL 109 mmol/L (98-107); CREATININE 0.82 mg/dL (0.55-1.02); ESTIMATED GFR 77 mL/min (>=60); GLUCOSE RANDOM 167 mg/dL (70-99); PROTEIN TOTAL,TP 6.6 g/dL (6.4-8.2); SODIUM,NA 145 mmol/L (136-145)
[2024-11-15] MEDS: Lactated Ringers 1,000 ML IV SCH (19:23)
[2024-11-15] MEDS: Cephalexin 500 MG Cap PO ONE (19:47)
[2024-11-15 20:48] VITALS: BP 151/65; PULSE 72
== END 2024-11-15 20:46 | disposition home or self-care (01) ==
LOC: DL.ED 17:15
DX: S30.1XXA Contusion of abdominal wall, initial encounter (principal); I25.10 Atherosclerotic heart disease of native coronary artery without angina pectoris; E78.00 Pure hypercholesterolemia, unspecified; I25.2 Old myocardial infarction; J44.9 Chronic obstructive pulmonary disease, unspecified; I12.9 Hypertensive chronic kidney disease with stage 1 through stage 4 chronic kidney disease, or unspecified chronic kidney disease; N18.9 Chronic kidney disease, unspecified; E11.22 Type 2 diabetes mellitus with diabetic chronic kidney disease; Z88.8 Allergy status to other drugs, medicaments and biological substances; Z88.5 Allergy status to narcotic agent; Z88.0 Allergy status to penicillin; Z79.51 Long term (current) use of inhaled steroids; Z79.899 Other long term (current) drug therapy; Z79.02 Long term (current) use of antithrombotics/antiplatelets; Z95.5 Presence of coronary angioplasty implant and graft; X58.XXXA Exposure to other specified factors, initial encounter
CPT/HCPCS: 36415; 74174; 80048; 80076; 85025; 85610; 99284; A9270; J7120; Q9967

== ENCOUNTER 2025-02-16 09:31 | Emergency (ER) | payer MEDICARE, OTHER ==
[2025-02-16] MEDS: Acetaminophen 500 MG Tab PO ONE (09:53)
[2025-02-16 10:03] VITALS: BP 138/48; PULSE 76
== END 2025-02-16 11:16 | disposition home or self-care (01) ==
LOC: DL.ED 09:31
DX: M16.0 Bilateral primary osteoarthritis of hip (principal); I25.10 Atherosclerotic heart disease of native coronary artery without angina pectoris; E78.00 Pure hypercholesterolemia, unspecified; I12.9 Hypertensive chronic kidney disease with stage 1 through stage 4 chronic kidney disease, or unspecified chronic kidney disease; N18.9 Chronic kidney disease, unspecified; E11.9 Type 2 diabetes mellitus without complications; Z90.49 Acquired absence of other specified parts of digestive tract; Z79.82 Long term (current) use of aspirin; Z79.899 Other long term (current) drug therapy; Z88.8 Allergy status to other drugs, medicaments and biological substances; Z88.1 Allergy status to other antibiotic agents; Z88.0 Allergy status to penicillin; W19.XXXA Unspecified fall, initial encounter
CPT/HCPCS: 73502; 73560; 73590; 99283; A9270

== ENCOUNTER 2025-02-24 16:44 | Emergency (ER) | payer MEDICARE, OTHER ==
[2025-02-24 17:15] LABS: BASOPHILS PERCENT AUTO 0.8 % (0.0-1.0); EOSINOPHILS PERCENT AUTO 3.3 % (1.0-3.0); HEMATOCRIT 37.1 % (37.0-47.0); HEMOGLOBIN 12.2 g/dL (12.0-16.0); LYMPHOCYTES PERCENT AUTO 40.9 % (20.5-50.1); MEAN CORPUSCULAR HEMOGLOBIN 31.4 pg (27.0-34.0); MEAN CORPUSCULAR HGB CONC 32.9 g/dL (33.0-35.0); MEAN CORPUSCULAR VOLUME 95.6 fL (80-100); MONOCYTES PERCENT AUTO 11.6 % (2-8); NEUTROPHILS PERCENT AUTO 43.4 % (42.2-75.2); PLATELET COUNT,PLT 222 10^3/uL (150-450); RED BLOOD CELL COUNT 3.88 10^6/uL (4.2-5.4)
[2025-02-24] MEDS: Aspirin 81 MG Tab.Chew ONE (17:25)
[2025-02-24] MEDS: fentaNYL 100 MCG/2 ML SDV IVPUSH ONE (17:25)
[2025-02-24 17:30] LABS: INR 0.9 (0.9-1.2); PROTHROMBIN TIME 9.9 SEC (9.0-12.0); PTT,PARTIAL THROMBOPLSTIN TIME 24.1 SEC (22.0-34.0)
[2025-02-24 17:33] LABS: A/G RATIO 1.1; ALBUMIN 3.5 g/dL (3.4-5.0); BILIRUBIN TOTAL 0.4 mg/dL (0.2-1.0); BUN/CREATININE RATIO 17.2 (No establ ref range); CALCIUM 9.3 mg/dL (8.5-10.1); CREATININE 0.87 mg/dL (0.55-1.02); EST CRCL DRUG DOSING (CG) 51.22 mL/min; MAGNESIUM 1.8 mg/dL (1.8-2.4); PROTEIN TOTAL,TP 6.6 g/dL (6.4-8.2)
[2025-02-24 17:43] LABS: LACTIC ACID 1.1 mmol/L (0.4-2.0)
[2025-02-24] MEDS: Aspirin 81 MG Tab.Chew PO ONE (17:48)
[2025-02-24] MEDS: fentaNYL 100 MCG/2 ML SDV ONE (17:49)
[2025-02-24 17:53] VITALS: PULSE 73
[2025-02-24 18:36] VITALS: BP 114/67
== END 2025-02-24 18:53 ==
LOC: DL.ED 16:44
DX: I25.110 Atherosclerotic heart disease of native coronary artery with unstable angina pectoris (principal); E78.00 Pure hypercholesterolemia, unspecified; I25.2 Old myocardial infarction; Z95.5 Presence of coronary angioplasty implant and graft; J44.9 Chronic obstructive pulmonary disease, unspecified; I12.9 Hypertensive chronic kidney disease with stage 1 through stage 4 chronic kidney disease, or unspecified chronic kidney disease; N18.9 Chronic kidney disease, unspecified; E11.22 Type 2 diabetes mellitus with diabetic chronic kidney disease; Z88.0 Allergy status to penicillin; Z88.8 Allergy status to other drugs, medicaments and biological substances; Z88.6 Allergy status to analgesic agent; Z79.51 Long term (current) use of inhaled steroids; Z79.899 Other long term (current) drug therapy
CPT/HCPCS: 36415; 71045; 80053; 83605; 83735; 84484; 85025; 85610; 85730; 96374; 99285-25; A9270-GY; J3010